=== PATIENT | female | born 1970 | race Two or more races ===

== ENCOUNTER 2024-08-18 11:29 | Emergency (ER) | payer MEDICAID, SELFPAY ==
[2024-08-18 11:31] VITALS: BMI 30.2
[2024-08-18 12:31] VITALS: BP 130/86; PULSE 72; RESP 19; TEMP 37.2; O2SAT 97; BMI 28.9
--- NOTE | 2024-08-18 12:57 | XR_ITS ---
Examination: Sacrum and coccyx 3 views TECHNIQUE: AP inclined AP lateral sacrum and coccyx 3 views Exam date and time: August 18, 2024 1435 hours INDICATIONS: Patient fell one day ago with injury to the sacrum, sacral pain FINDINGS: Acute appearing nondisplaced fracture fifth sacral segment Moderate osteopenia IMPRESSION: Acute appearing nondisplaced fracture fifth sacral segment
--- NOTE | 2024-08-18 12:58 | EDNOTE_ITS ---
<Statement entered by Caitlin Waldron MD - 08/19/24 07:39> As co-signing physician, I was present and available for consult prn. I concur with the plan and care as documented by the midlevel provider. ED Back Injury Pain RME/HPI General Chief Complaint: Back Pain/Injury Stated Complaint: FALL YESTERDAY, LOWER BACK PAIN Time Seen by Provider: 08/18/24 12:02 Source: patient Arrival date/time: 08/18/24 11:29 53-year-old female presents to the emergency department with complaints of a slip and fall yesterday. Patient reports she literally fell sitting and has been complaining of coccyx pain. Stable gait no changes in gait however has pain right in the buttocks area. Patient did not attempt any interventions or take any OTC medications prior to ED visit. Patient denies any other associated symptoms or aggravating factors. No modifying factors, no radiation, no migration. Mode of arrival: ambulatory Limitations: no limitations Related Data Previous Rx's ?Medication ?Instructions ?Recorded ibuprofen 600 mg tablet 600 mg PO TID PRN pain #20 t abs 03/13/18 hydrocodone 5 mg-acetaminophen 325 1 tab PO BID PRN pa in #10 tabs 12/17/23 mg tablet ibuprofen 600 mg tablet 600 mg PO Q6H #30 tabs 12/16 hydrocodone 5 mg-acetaminophen 325 1 tab PO Q8H PRN pa in #10 tabs 08/18/24 mg tablet ibuprofen 800 mg tablet (IBU) 800 mg PO Q8H #20 tabs 0 08/18/24 Allergies Allergy/AdvReac Type Severity Reaction Status Date / Time No Known Allergies Allergy Verified 08/18/24 11:30 Review of Systems Review of Systems Systems Reviewed: All systems reviewed, normal except as documented Narrative Review of Systems: Gen: No fever, no chills, no weight loss EYES: No discharge, no visual changes, no pain HEENT: No ear pain, no congestion, no sore throat PULM: No shortness of breath, no cough, no congestion CV: No chest pain, no dyspnea on exertion, no palpitations GI: No nausea, no vomiting, no diarrhea, no pain, no constipation : No frequency, no urgency, no dysuria Musc/skel: No joint pain, positive coccyx back pain Skin: No rash Psyc: No hallucinations, no depression Heme/Lymph: No easy bleeding or bruising tendencies Neuro: No weakness, no headache ED Exam General Limitations: Present no limitations General appearance: Present alert and in no apparent distress Head Head exam: Present atraumatic Eye Eye exam: Present normal appearance, PERRL and EOMI ENT ENT exam: Present normal exam, normal oropharynx and mucous membranes moist Neck Neck exam: Present normal inspection, full ROM and trachea midline Chest Chest inspection: Present normal inspection and symmetric chest wall rise Respiratory Respiratory exam: Present normal lung sounds bilaterally Cardiovascular Cardiovascular exam: Present regular rate, normal rhythm and normal heart sounds Abdominal Exam Abdominal exam: Present soft and normal bowel sounds Extremities Exam Extremities exam: Present full ROM Back Exam Back exam: Present full ROM, tenderness, paraspinal tenderness and other (Tender to palpation to coccyx area) Neurological Exam Neurological exam: Present alert, oriented X3 and CN II-XII intact Psychiatric Psychiatric exam: Present normal affect and normal mood Skin Skin exam: Present warm, dry, intact and normal color Course Quality Measures none Orders Category Date Time Status XR lumbar spine 2-3V Stat Exams 08/18/24 12:57 Completed XR sacrum coccyx min 2V Stat Exams 08/18/24 12:57 Completed HYDROcodone*/APAP 5/325 [[place] 5/325] Med 08/18/24 12:57 Discontinued 1 tab PO X1 ONE Vital Signs Vital signs: Vital Signs Temperature 99.0 F 08/18/24 12:31 Pulse Rate 72 08/18/24 12:31 Respiratory Rate 19 08/18/24 12:31 Blood Pressure 130/86 H 08/18/24 12:31 Pulse Oximetry (%) 97 08/18/24 12:31 Oxygen Delivery Method Room Air 08/18/24 12:31 Back Pain / Injury MDM Narrative MDM Narrative:: 53-year-old female in no acute distress presents to the emergency department with complaints of coccyx pain status post a fall yesterday. No bowel or bladder dysfunction, saddle anesthesia. Stable gait. However pain is elicited with ambulation. Pain medication was given in the ED improving her pain. X-ray does demonstrate a small fracture to the coccyx. Reassured patient. No further workup initiated at this time. Follow-up with her PCP return to the emergency department this any worsening symptoms and condition. Patient data External records reviewed:: [facility] previous records Clinical information provided by:: patient Social determinants that could affect healthcare access:: none Patient has the following chronic illnesses:: None How is presenting disease/condition affected by chronic disease/condition?: no chronic disease Evaluation data The following diagnostics were reviewed and interpreted by me:: radiology exam(s) Lab and/or radiology exams considered but not ordered:: No Interpretation Summary: Examination: Lumbar spine 3 views Technique one AP lateral coned lateral lower lumbar spine 3 views Exam date and time: August 18, 2024 1436 hours INDICATIONS: Patient fell today with injury of the lower back, lower back pain. FINDINGS: Moderate osteopenia No acute lumbar fracture No spondylolisthesis No significant lumbar disc narrowing IMPRESSION: No acute lumbar fracture Medications / Prescriptions Medications or Prescriptions considered but not ordered:: no Medication administrations:: Medication Administration History Discontinued Medications Hydrocodone Bitart/Acetaminophen (Hydrocodone/Apap 5/325 Tablet) 1 tab PO X1 ONE Stop: 08/18/24 12:58 Last Admin: 08/18/24 13:03 Dose: 1 tab Documented By: DB All medications administered and effective Consultations Consultation(s) initiated? (list below): No Diagnosis Differential diagnosis back pain/injury: lumbar radiculopathy, sciatica and strain of lumbar region Most likely diagnosis given after review of the tests above:: Coccyx fracture Admission Indicated Admission indicated?: not indicated Admission Request Was there a request for admission?: No Disposition Plan Disposition Plan: Discharge Discharge Attestation Discharge Attestation: The patient and all family members were given an opportunity to ask questions and understood the discharge instructions. Discharge instructions specifically effects, indications for sooner follow up or return to the emergency department, and the expected course of current diagnosis. Patient condition: Stable Discharge Plan Plan Patient Disposition: HOME (Self Care) Patient condition on transfer: Stable Prescriptions/Referrals Prescriptions/Med Rec: New ibuprofen [IBU] 800 mg tablet 800 mg PO Q8H Qty: 20 0RF hydrocodone-acetaminophen 5-325 mg tablet 1 tab PO Q8H MDD 3 PRN (Reason: pain) Qty: 10 0RF No Action ibuprofen 600 mg tablet 600 mg PO TID PRN (Reason: pain) Qty: 20 0RF hydrocodone-acetaminophen 5-325 mg tablet 1 tab PO BID MDD 10 PRN (Reason: pain) Qty: 10 0RF ibuprofen 600 mg tablet 600 mg PO Q6H Qty: 30 0RF Referrals: Harsha Day MD [Primary Care Provider] - In 1 week Problem List Clinical Impression: Closed fracture of coccyx Patient/Caregiver Discharge Instructions Discharge Activity: activity as tolerated Education Materials: Tailbone (Coccyx) Fracture Additional Instructions: You did have a fracture of your coccyx bone. Please take medication as directed. Please follow-up with your primary doctor you might need a orthopedic referral. Please buy a donut pillow when sitting down Return to the emergency department there is any worsening symptoms change in condition. Print Language: Sami Stand Alone Forms: Rosi Award Info., Patient Portal Info Letter PA/ASSOCIATE ART DIRECTOR Supervising Physician PA/ASSOCIATE ART DIRECTOR Supervising Physician: Dr. Leyva
[2024-08-18] MEDS: HYDROcodone/APAP 5/325 TABLET 1 TAB PO (13:03)
== END 2024-08-18 15:41 | disposition home or self-care (01) ==
PROVIDERS: Emergency Provider Emergency Medicine; PCP Family Medicine
DX: S32.2XXA Fracture of coccyx, initial encounter for closed fracture (principal); W01.0XXA Fall on same level from slipping, tripping and stumbling without subsequent striking against object, initial encounter
CPT/HCPCS: 72100; 72220; 99283; A9270